=== PATIENT | female | born 1975 | race Caucasian/White ===

== ENCOUNTER 2016-09-27 02:58 | Emergency (ER) | payer MEDICAID ==
[~2016-09-27] VITALS: Ht 157.5 cm; Wt 66.7 kg
[2016-09-27 03:20] VITALS: BP 133/97; PULSE 95; RESP 11; TEMP 98.4; O2SAT 99
[2016-09-27] MEDS ORDERED: DIPHENHYDRAMINE HCL 25 MG CAPSULE PO ONE (04:00)
[2016-09-27 04:10] VITALS: BP 135/95; PULSE 95; RESP 11; TEMP 98.4; O2SAT 99
== END 2016-09-27 04:10 | disposition home or self-care (01) ==
LOC: SED 02:58
DX: R21 Rash and other nonspecific skin eruption (principal); I10 Essential (primary) hypertension; J45.909 Unspecified asthma, uncomplicated; Z88.2 Allergy status to sulfonamides; Z88.1 Allergy status to other antibiotic agents
CPT/HCPCS: 99282; Q0163

== ENCOUNTER 2018-02-08 21:14 | Emergency (ER) | payer MEDICAID ==
[~2018-02-08] VITALS: Ht 157.5 cm; Wt 65.3 kg
[2018-02-08 21:25] VITALS: BP_SYST 144
[2018-02-08] MEDS ORDERED: CLINDAMYCIN HCL 150 MG CAPSULE PO ONE (23:00)
[2018-02-08] MEDS ORDERED: BACITRACIN 1 GM OINT TP ONE (23:01)
[2018-02-08 23:20] VITALS: BP_SYST 125
== END 2018-02-08 23:20 | disposition home or self-care (01) ==
LOC: SED 21:14
DX: L03.115 Cellulitis of right lower limb (principal); J45.909 Unspecified asthma, uncomplicated; Z88.2 Allergy status to sulfonamides; Z88.8 Allergy status to other drugs, medicaments and biological substances
CPT/HCPCS: 99283

== ENCOUNTER 2019-09-28 20:13 | Emergency (ER) | payer MEDICAID ==
[~2019-09-28] VITALS: Ht 157.5 cm; Wt 65.8 kg
[2019-09-28 20:30] VITALS: BP_SYST 127
--- NOTE | 2019-09-28 20:30 | NUR ---
Pt ambulatory to bed 4 for evaluation
--- NOTE | 2019-09-28 21:00 | NUR ---
CALM, ALERT, RESP UNLABORED, SKIN WARM AND DRY. COMMUNICATES CLEARLY IN FULL COMPLETE SENTENCES. BIB SELF PRIVATE AUTO. STATED SHE FELL YESTERDAY MORNING SHE HAS NO DETAILS OTHER THAN WAKING UP ON GROUND BLEEDING AND BROKEN TEETH SEEN BY DENTIST TODAY
[2019-09-28] MEDS ORDERED: traMADol HCL HCL 50 MG TABLET (ULTRAM) PO ONE (21:45)
[2019-09-28 22:09] LABS: BASOPHILS % (AUTO) 0.3 % (0.0-2.0); EOSINOPHILS # (AUTO) 0.1 K/uL (0.0-0.4); EOSINOPHILS % (AUTO) 1.7 % (0.0-4.0); HEMOGLOBIN 10.6 g/dL (12.0-16.0); LYMPHOCYTES # (AUTO) 1.6 K/uL (1.0-5.5); LYMPHOCYTES % (AUTO) 20.8 % (20.5-51.5); MEAN CORPUSCULAR HEMOGLOBIN 27 pg (27-31); MEAN CORPUSCULAR HGB CONC 33 % (32-36); MEAN CORPUSCULAR VOLUME 83 fL (79.0-98.0); MONOCYTES # (AUTO) 0.7 K/uL (0.0-1.0); MONOCYTES % (AUTO) 8.7 % (1.7-9.3); NEUTROPHILS # (AUTO) 5.3 K/uL (1.8-7.7); NEUTROPHILS % (AUTO) 68.5 % (40.0-70.0); PLATELET COUNT (AUTO) 307 K/uL (130-430); RED BLOOD CELL COUNT(AUTO) 3.88 MIL/uL (4.2-6.2); RED CELL DISTRIBUTION WIDTH 15.1 % (9.0-15.0); WHITE BLOOD COUNT (AUTO) 7.7 K/uL (4.8-10.8)
[2019-09-28 22:11] LABS: CALCIUM 8.4 mg/dL (8.4-11.0); CREATININE 0.9 mg/dL (0.55-1.30); POTASSIUM 3.1 mmol/L (3.5-5.1)
[2019-09-28 22:19] LABS: BILIRUBIN,URINE 1+ (NEGATIVE); COLOR,URINE YELLOW (YELLOW); GLUCOSE,URINE NEGATIVE (NEGATIVE); KETONES,URINE 1+ (NEGATIVE); LEUKOCYTE ESTERASE ,URINE 2+ (NEGATIVE); NITRITE, URINE NEGATIVE (NEGATIVE); PROTEIN URINE NEGATIVE (NEGATIVE); UROBILINOGEN,URINE 0.2 (0.2-1.0)
--- NOTE | 2019-09-28 22:21 | NUR ---
PREG TEST NEG. SENT TO RADIOLOGY. CT HEAD/CXR
[2019-09-28 22:27] LABS: ALBUMIN 3.2 g/dL (3.4-4.8); TOTAL BILIRUBIN 0.4 mg/dL (0.0-1.0)
[2019-09-28 22:27] LABS: BLOOD, URINE TRACE (NEGATIVE)
[2019-09-28 22:30] LABS: BARBITURATE, URINE NEGATIVE (NEG <=200); BENZODIAZEPINE, URINE NEGATIVE (NEG <=150); CANNABINOID, URINE NEGATIVE (NEG <=50); COCAINE, URINE NEGATIVE (NEG <=150); METHAMPHETAMINES SCREEN,URINE POSITIVE (NEG <=500); OPIATE, URINE NEGATIVE (NEG <=100); PHENCYCLIDINE SCREEN,URINE NEGATIVE (NEG <=25); UR TRICYCLIC ANTIDEPRESSANTS NEGATIVE (NEG <=300); URINE AMPHETAMINE POSITIVE (NEG <=500); URINE METHADONE NEGATIVE (NEG <=200); URINE OXYCODONE SCREEN NEGATIVE (NEG <=100); URINE PROPOXYPHENE SCREEN NEGATIVE (NEG <=300)
--- NOTE | 2019-09-28 22:44 | NUR ---
SMALL LAC TO CHIN, NO BLEEDING. BANDAGE APPLIED
[2019-09-28 22:48] LABS: CLARITY/URINE CLOUDY (CLEAR); WBC,URINE 20-50 /HPF (0-3)
[2019-09-28 22:49] LABS: BACTERIA,URINE MODERATE /HPF (None Seen); MUCUS,URINE 3+ /LPF (None Seen)
--- NOTE | 2019-09-28 23:13 | NUR ---
wound care, steristrips. site cleaned and drsg
--- NOTE | 2019-09-28 23:19 | NUR ---
Patient given written and verbal discharge instructions and verbalizes understanding. ER MD ESCOBEDO discussed with patient the results and treatment provided. Patient in stable condition. ID arm band removed. IV catheter removed intact and dressing applied, no active bleeding. Rx of ABX/PAINMEDICATION given. Patient educated on pain management and to follow up with PMD. Pain Scale 4/10. Opportunity for questions provided and answered. Medication side effect fact sheet provided.
--- NOTE | 2019-09-28 23:23 | NUR ---
Report received from CHARLY Sosa for continuation of care. Upon reassessment making new plan of care for possibility of transfer or referral for jaw fracture. Patient sitting comfortably in bed in no apparent distress. IV in good condition, no signs of infiltration.
[2019-09-28] MEDS ORDERED: NITROFURANTOIN MONOHYD/M-CRYST 100 MG CAPSULE PO ONE (23:30)
[2019-09-28] MEDS ORDERED: POTASSIUM CHLORIDE 20 MEQ TAB.PRT.SR PO ONE (23:30)
--- NOTE | 2019-09-28 23:43 | NUR ---
Patient able to swallow water without signs of choking or vomiting. Patient states her teeth are aching and throbbing. Patient rates her pain 10 out of 10.
--- NOTE | 2019-09-29 00:28 | NUR ---
Patient resting in bed. Currently waiting to hear from [facility] for acceptance to transfer patient for higher level of care.
[2019-09-29] MEDS ORDERED: POTASSIUM CHLORIDE 20 MEQ TAB.PRT.SR PO ONE (01:30)
[2019-09-29] MEDS ORDERED: AMOXICILLIN 500 MG CAPSULE PO ONE (01:30)
--- NOTE | 2019-09-29 01:59 | NUR ---
Patient tolerated oral medications well. No signs of choking. Patient is resting in bed. Vital signs stable.
--- NOTE | 2019-09-29 02:14 | NUR ---
Note nancy in EDM - 09/29/19 at 0417 by DAJA Patient informed of acceptance to transfer to [facility]. Transport to hospital arriving between 7am-9am. Patient resting with no signs of distress.
--- NOTE | 2019-09-29 02:14 | NUR ---
Patient informed of pending transfer to [facility]. Transport to hospital possibly arriving between 7am-9am. Patient resting with no signs of distress.
--- NOTE | 2019-09-29 03:13 | NUR ---
Patient asleep in bed without signs of distress. Vital signs stable.
--- NOTE | 2019-09-29 04:05 | NUR ---
Trav cruz in ED - 09/29/19 at 0419 by DAJA [facility] refused transfer of patient for higher level of care.
--- NOTE | 2019-09-29 04:05 | NUR ---
[facility] refused transfer of patient for higher level of care. aware.
--- NOTE | 2019-09-29 04:34 | NUR ---
Dr. Pardo on the phone with Dr. Guevara discussing possibility of transfer to [facility]. Request denied because patient is categorized as urgent not emergent per Dr. Guevara.
[2019-09-29 05:34] VITALS: BP_SYST 133
--- NOTE | 2019-09-29 05:34 | NUR ---
Patient given written and verbal discharge instructions and verbalizes understanding. ER MD discussed with patient the results and treatment provided, pt states she will be following up with [facility]. Patient in stable condition. ID arm band removed. IV catheter removed intact and dressing applied, no active bleeding. Pt instructed to continue taking pain medication and antibiotics given to her by dentist. Patient educated on pain management and to follow up with PMD. Pain Scale 4/10. Opportunity for questions provided and answered.
== END 2019-09-29 05:34 | disposition home or self-care (01) ==
LOC: SED 20:13
DX: S02.652A Fracture of angle of left mandible, initial encounter for closed fracture (principal); S02.651A Fracture of angle of right mandible, initial encounter for closed fracture; N39.0 Urinary tract infection, site not specified; E87.6 Hypokalemia; D64.9 Anemia, unspecified; R55 Syncope and collapse; J45.909 Unspecified asthma, uncomplicated; N28.9 Disorder of kidney and ureter, unspecified; F41.9 Anxiety disorder, unspecified; X58.XXXA Exposure to other specified factors, initial encounter; Y93.89 Activity, other specified; Y92.89 Other specified places as the place of occurrence of the external cause; Y99.8 Other external cause status
CPT/HCPCS: 36415; 70486-TC; 71045; 80053; 80307; 81000-TC; 81025; 84484; 85025; 87086; 93005; 99285

== ENCOUNTER 2021-02-08 15:36 | Emergency (ER) | payer BC, MEDICAID ==
[~2021-02-08] VITALS: Ht 157.5 cm; Wt 68.0 kg
[2021-02-08 15:46] VITALS: BP_SYST 139
--- NOTE | 2021-02-08 15:48 | NUR ---
PATIENT FROM HOME, AMBULATORY, AOX4 CRYING AND REPORTS HAVING PANIC ATTACK. PATIENT STATES "I AM SCARED OF BEING ALONE AND SCARED OF THE DARK." REPORTS HAVING PANIC ATTACKS ONCE A YEAR BUT DENIES ANY TRIGGERS. PATIENT DENIES SI/HI. PATIENT IS ACCOMPANIED BY BROTHER WHO IS IN THE WAITING ROOM. DENIE ANY PAIN
--- NOTE | 2021-02-08 15:48 | NUR ---
Patient to ER bed 02 to gown for evaluation. Side rails up. Report given to CHARLY Sosa
--- NOTE | 2021-02-08 15:53 | NUR ---
ER at bedside examining patient.
--- NOTE | 2021-02-08 15:55 | NUR ---
RECIEVED AND IN ROOM, PT RESP UNLABORED, SKIN WARM AND DRY. STEADY GAIT
[2021-02-08] MEDS ORDERED: LORazepam 2 MG/ML VIAL IM ONE (16:00)
--- NOTE | 2021-02-08 16:11 | NUR ---
medicated for anxiety. pt anxious and retless, denies cp/sob
[2021-02-08] MEDS ORDERED: CEL20 PO (16:32)
--- NOTE | 2021-02-08 16:35 | NUR ---
DR HARRIS AT BEDSIDE
[2021-02-08 16:57] VITALS: BP_SYST 127
--- NOTE | 2021-02-08 16:57 | NUR ---
Patient given written and verbal discharge instructions and verbalizes understanding. ER MD discussed with patient the results and treatment provided. Patient in stable condition. ID arm band removed. Rx of ANXIETY given. Patient educated on pain management and to follow up with PMD. Pain Scale 0/10 Opportunity for questions provided and answered. Medication side effect fact sheet provided.
== END 2021-02-08 16:57 | disposition home or self-care (01) ==
LOC: SED 15:36
DX: F41.9 Anxiety disorder, unspecified (principal); F32.9 Major depressive disorder, single episode, unspecified; J45.909 Unspecified asthma, uncomplicated; Z79.899 Other long term (current) drug therapy; Z88.2 Allergy status to sulfonamides
CPT/HCPCS: 96372; 99283; J2060

== ENCOUNTER 2021-05-11 21:35 | Emergency (ER) | payer BC, SELFPAY ==
[~2021-05-11] VITALS: Ht 157.5 cm; Wt 68.0 kg
[~2021-05-11 21:35] MED LIST: CEL20 PO
[2021-05-11 22:04] VITALS: BP_SYST 136
--- NOTE | 2021-05-11 22:12 | NUR ---
Patient triaged and placed in waiting room. VSS and patient appears in no acute distress at this time. Accompanied by SELF, awaiting available bed, and MD notified of need for MSE.
--- NOTE | 2021-05-11 22:52 | NUR ---
DR. URENA IN TRIAGE FOR MSE
[2021-05-12] LABS: BILIRUBIN,URINE NEGATIVE (NEGATIVE); BLOOD, URINE 3+ (NEGATIVE); CLARITY/URINE CLOUDY (CLEAR); COLOR,URINE RED (YELLOW); GLUCOSE,URINE NEGATIVE (NEGATIVE); KETONES,URINE NEGATIVE (NEGATIVE); LEUKOCYTE ESTERASE ,URINE NEGATIVE (NEGATIVE); NITRITE, URINE NEGATIVE (NEGATIVE); PH,URINE 8.5 (5.0-8.0); PROTEIN URINE 2+ (NEGATIVE)
[2021-05-12 00:15] LABS: BACTERIA,URINE FEW /HPF (None Seen); RBC,URINE >100 /HPF (0-3); WBC,URINE 0-3 /HPF (0-3)
[2021-05-12 00:24] LABS: BARBITURATE, URINE NEGATIVE (NEG <=200); BENZODIAZEPINE, URINE NEGATIVE (NEG <=150); CANNABINOID, URINE NEGATIVE (NEG <=50); COCAINE, URINE NEGATIVE (NEG <=150); METHAMPHETAMINES SCREEN,URINE POSITIVE (NEG <=500); OPIATE, URINE NEGATIVE (NEG <=100); PHENCYCLIDINE SCREEN,URINE NEGATIVE (NEG <=25); UR TRICYCLIC ANTIDEPRESSANTS NEGATIVE (NEG <=300); URINE AMPHETAMINE POSITIVE (NEG <=500); URINE METHADONE NEGATIVE (NEG <=200); URINE OXYCODONE SCREEN NEGATIVE (NEG <=100); URINE PROPOXYPHENE SCREEN NEGATIVE (NEG <=300)
--- NOTE | 2021-05-12 01:30 | NUR ---
Patient to ER bed 7 to gown for evaluation. Side rails up.
--- NOTE | 2021-05-12 02:05 | NUR ---
DR. URENA AT BEDSIDE FOR PELVIC EXAM WITH AMPOULE INSPECTOR
[2021-05-12] MEDS ORDERED: DOXY100C5 PO (02:16)
[2021-05-12] MEDS ORDERED: IBUP-1969 PO (02:16)
[2021-05-12 02:30] VITALS: BP_SYST 136
--- NOTE | 2021-05-12 02:30 | NUR ---
Patient given written and verbal discharge instructions and verbalizes understanding. ER MD discussed with patient the results and treatment provided. Patient in stable condition. ID arm band removed. Rx of NONE given. Patient educated on pain management and to follow up with PMD. Pain Scale 0/10. Opportunity for questions provided and answered. Medication side effect fact sheet provided.
[2021-05-14 08:06] LABS: CHLAMYDIA TRACHOMATIS NAA Negative (Negative); NEISSERIA GONORRHOEAE NAA Negative (Negative)
== END 2021-05-12 02:30 | disposition home or self-care (01) ==
LOC: SED 21:35
DX: N92.6 Irregular menstruation, unspecified (principal); C53.9 Malignant neoplasm of cervix uteri, unspecified; R10.2 Pelvic and perineal pain; J45.909 Unspecified asthma, uncomplicated; J44.9 Chronic obstructive pulmonary disease, unspecified; K21.9 Gastro-esophageal reflux disease without esophagitis; E11.9 Type 2 diabetes mellitus without complications; I10 Essential (primary) hypertension; F03.90 Unspecified dementia, unspecified severity, without behavioral disturbance, psychotic disturbance, mood disturbance, and anxiety; Z88.2 Allergy status to sulfonamides
CPT/HCPCS: 76376; 80307; 81000; 81025; 87070-TC; 87210-TC; 87491; 87591; 99284

== ENCOUNTER 2022-05-17 13:32 | Emergency (ER) | payer BC ==
[~2022-05-17] VITALS: Ht 157.5 cm; Wt 68.0 kg
[~2022-05-17 13:32] MED LIST changes: +DOXY100C5 PO; +IBUP-1969 PO
[2022-05-17 15:30] VITALS: BP_SYST 169
--- NOTE | 2022-05-17 16:35 | NUR ---
RECEIVED PT FROM CHARLY DELUCA. PT BIBS FOR C/O LLE EDEMA, REDNESS, WITH OPEN SORES. PT STATED THE AREA LOOKED LIKE A SPIDER BITE 8 DAYS AGO, THEN IT STARTED SWELLING. PT IS AAOX4. NORMAL S1S2, ON R/A. DENIES N/V/D/C. DISTAL PULSES NORMAL. STATES LEG PAIN IS 4/10. SIDERAILS UP X2.
--- NOTE | 2022-05-17 16:40 | NUR ---
DR. REZA AT BEDSIDE TO ASSESS PT.
--- NOTE | 2022-05-17 16:57 | NUR ---
TORADOL IM GIVEN TO R DELTOID. LLE WOUND CLEANSED WITH NS, PATTED DRY, BACITRACIN APPLIED. COVERED WITH ABDAPTIC AND KERLIX AND TAPE.
[2022-05-17] MEDS ORDERED: KETOROLAC TROMETHAMINE 30 MG VIAL IM ONE (17:00)
[2022-05-17] MEDS ORDERED: BACITRACIN 1 GM OINT TP ONE (17:00)
[2022-05-17] MEDS ORDERED: CLIN300C3 PO ×2 (17:13→18:05)
[2022-05-17] MEDS ORDERED: IBUP-1969 PO ×2 (17:13→18:05)
[2022-05-17 18:10] VITALS: BP_SYST 153
--- NOTE | 2022-05-17 18:13 | NUR ---
Patient given written and verbal discharge instructions and verbalizes understanding. ER MD discussed with patient the results and treatment provided. Patient in stable condition. ID arm band removed. Rx of CLINDAMYCIN, IBUPROPHEN given. Patient educated on pain management and to follow up with PMD. Pain Scale 2/10. Opportunity for questions provided and answered. Medication side effect fact sheet provided.
== END 2022-05-17 18:10 | disposition home or self-care (01) ==
LOC: SED 13:32
DX: L03.116 Cellulitis of left lower limb (principal); R22.42 Localized swelling, mass and lump, left lower limb; J45.909 Unspecified asthma, uncomplicated; Z88.2 Allergy status to sulfonamides; Z79.899 Other long term (current) drug therapy
CPT/HCPCS: 99283; 96372; J1885

== ENCOUNTER 2023-01-12 21:40 | Emergency (ER) | payer BC ==
[~2023-01-12] VITALS: Ht 157.5 cm; Wt 67.6 kg
[~2023-01-12 21:40] MED LIST changes: +CEPH-548 PO; +CLIN300C3 PO
[2023-01-12 21:49] VITALS: BP_SYST 129; PULSE 105; RESP 21; TEMP 98.3; O2SAT 98
[2023-01-12] MEDS ORDERED: MED4 PO (22:38)
[2023-01-12 22:43] VITALS: BP_SYST 128; PULSE 104; RESP 18; TEMP 98.9; O2SAT 95
[2023-01-12 23:55] LABS: INFLUENZA TYPE A negative (NEGATIVE); INFLUENZA TYPE B NEGATIVE (NEGATIVE)
[2023-01-13 00:09] LABS: COVID19 ANTIGEN SOFIA FIA POSITIVE (NEGATIVE)
== END 2023-01-12 22:43 | disposition home or self-care (01) ==
LOC: SED 21:40
DX: U07.1 COVID-19 (principal); J06.9 Acute upper respiratory infection, unspecified; R06.02 Shortness of breath; R05.9 Cough, unspecified; J45.909 Unspecified asthma, uncomplicated; Z88.2 Allergy status to sulfonamides; Z79.899 Other long term (current) drug therapy
CPT/HCPCS: 36415; 99283

== ENCOUNTER 2023-11-24 09:51 | Emergency (ER) | payer MEDICAID ==
[~2023-11-24] VITALS: Ht 157.5 cm; Wt 68.0 kg
[2023-11-24 09:51] VITALS: BP_SYST 127; PULSE 85; RESP 20; TEMP 98.2; O2SAT 97
[~2023-11-24 09:51] MED LIST changes: +MED4 PO
[2023-11-24 10:32] LABS: INFLUENZA TYPE A Negative (NEGATIVE); INFLUENZA TYPE B NEGATIVE (NEGATIVE)
[2023-11-24 10:33] LABS: COVID19 ANTIGEN SOFIA FIA NEGATIVE (NEGATIVE)
[2023-11-24] MEDS ORDERED: ZIT250 PO (11:15)
== END 2023-11-24 11:19 | disposition home or self-care (01) ==
LOC: SED 09:51
DX: J40 Bronchitis, not specified as acute or chronic (principal); R05.9 Cough, unspecified; R06.02 Shortness of breath; Z88.2 Allergy status to sulfonamides; Z20.822 Contact with and (suspected) exposure to COVID-19
CPT/HCPCS: 36415; 71045; 99284